=== PATIENT | male | born 1955 | race Caucasian/White ===

== ENCOUNTER 2016-07-20 08:02 | Outpatient (CLI) | payer OTHER ==
[2015-05-05 04:02] VITALS: BP 118/60
--- NOTE | 2016-07-20 14:08 | Diagnostic Imaging Report ---
PHIL BARRERA (JOCELYNE) - ER [facility] [address] [address] Report Submission Date: Jul 20, 2016 10:50:07 AM STORY EDITOR Patient Study Name: DENI ZAMORANO Date: Jul 20, 2016 8:15:26 AM STORY EDITOR Modality Type: US Gender: M Description: US CHEST LTD : 53 Institution: [facility] Physician: PHIL BARRERA (JOCELYNE) - ER Ultrasound chest wall History: Palpable lump in anterior chest wall Findings: An indeterminate 6.8 x 8 mm hypoechoic subcutaneous nodule is observed in the anterior chest wall. The lesion may be partially cystic. Impression: Nonspecific 8 mm subcutaneous chest wall nodule. Electronically signed on Jul 20, 2016 10:50:07 AM STORY EDITOR by: Apolinar FORRESTER
== END 2016-07-20 08:03 ==
LOC: RAD 08:02
PROVIDERS: ATTEND Emergency Medicine
DX: R22.2 Localized swelling, mass and lump, trunk (principal)
CPT/HCPCS: 76604

== ENCOUNTER 2016-07-25 18:48 | Emergency (ER) | payer OTHER ==
[2016-07-25] MEDS ORDERED: ONDANSETRON HCL/PF 4 MG/ 2ML VIAL ONE (19:01)
[2016-07-25] MEDS ORDERED: 0.9 % SODIUM CHLORIDE 1,000 ML IV ONE ×4 (19:01→22:33)
[2016-07-25] MEDS ORDERED: ONDANSETRON HCL/PF 4 MG/ 2ML VIAL IVP ONE (19:02)
[2016-07-25 19:11] LABS: BASOPHILS % 0.2 (0.0-1.5); EOSINOPHILS % 1.4 % (0.0-6.8); MONOCYTES # 0.6 # k/uL (0.0-0.9); MONOCYTES % 6.7 % (0.0-11.0); NEUTROPHILS # 7.3 # k/uL (1.4-7.7)
[2016-07-25] MEDS ORDERED: IPRATROPIUM/ALBUTEROL SULFATE 3 ML AMPUL.NEB NEB ONE ×2 (19:17→19:19)
--- NOTE | 2016-07-25 19:24 | ED Physician Documentation ---
General Adult - HISTORIAN Historian: patient, spouse - HPI Stated Complaint: cough, n/v Chief Complaint: General Adult Additional Information: Cough and congestion for several days. Worse the last two days with frequent productive cough, sweats, fever to 101, nausea, gagging, can't breathe well if he lies supine. Urine x 2-3 today and is darker than usual. - ROS CONST: fever, sweating CVS/RESP: cough - PAST HX Past History: other (back pain/strain) Allergies/Adverse Reactions: Allergies Allergy/AdvReac Type Severity Reaction Status Date / Time Penicillins Allergy Verified 07/25/16 19:18 Home Medications: Ambulatory Orders Medication Instructions Recorded Azithromycin [Zithromax] 250 mg PO DAILY #4 tablet 07/25/16 Benazepril HCl [Lotensin] 10 mg PO D 07/25/16 predniSONE [Deltasone] 20 mg PO QD #6 tablet 07/25/16 Benzonatate [Tessalon Perles] 200 mg PO Q8H #18 capsule 07/26/16 Phenylephrine HCl/Cod/Prometh 5 ml PO Q6H PRN #120 syrup 07/26/16 [Phenergan Vc-Codeine Syrup] - SOCIAL HX Smoking History: non-smoker - FAMILY HX Family History: No - VITAL SIGNS Vital Signs: Vital Signs Temp Pulse Resp BP Pulse Ox 100.1 F H 88 18 122/63 97 07/25/16 18:49 07/25/16 18:49 07/25/16 18:49 07/25/16 18:49 07/25/16 18:49 - REVIEWED ASSESSMENTS Nursing Assessment Reviewed: Yes Vitals Reviewed: Yes Progress - Progress Progress: Chest, 2 view History: COUGH X3 DAYS , CONGESTION, FEVER, Findings: The heart size is normal. Trace aortic atherosclerosis is present. The lungs are clear. There is no pleural effusion or pneumothorax identified. The osseous structures are normal. Impression: 1. No acute pulmonary disease. Electronically signed on Jul 25, 2016 7:57:19 PM MAINTENANCE MECHANIC MILLWRIGHT by: Johnny Scott [id number], still no urine, so erd L NS added. ED Results Lab/Radiology - Orders Orders: ED Orders Category Date Time Status Place Saline Lock/IV Now Care 07/25/16 19:02 Active CHEST 2 VIEW [CHEST P.A.&LAT 2 VIEWS] [RAD] Stat Exams 07/25/16 Ordered CBC/PLATELET/DIFF Routine Lab 07/25/16 19:06 Received CMP Routine Lab 07/25/16 19:06 Received INFLUENZA A&B Stat Lab 07/25/16 19:02 Ordered URINALYSIS Routine Lab 07/25/16 Ordered 0.9 % Sodium Chloride [Normal Saline] 1,000 ml Med 07/25/16 19:01 Discontinued IV .STK-MED 0.9 % Sodium Chloride [Normal Saline] 1,000 ml Med 07/25/16 19:03 Active IV Q1H Ipratropium/Albuterol Sulfate [Duoneb] Med 07/25/16 19:17 Discontinued 3 ml NEB .STK-MED ONE Ipratropium/Albuterol Sulfate [Duoneb] Med 07/25/16 19:19 Discontinued 3 ml NEB NOW ONE Ondansetron HCl/Pf [Zofran 4 mg/2 ml] Med 07/25/16 19:01 Discontinued 4 mg .ROUTE .STK-MED ONE Ondansetron HCl/Pf [Zofran 4 mg/2 ml] Med 07/25/16 19:02 Discontinued 4 mg IVP NOW ONE General Adult Physical Exam - PHYSICAL EXAM GENERAL APPEARANCE: moderate distress (apears tired, ill) EENT: eye inspection normal NECK: normal inspection, supple RESPIRATORY: breath sounds normal (but some decrease throughout) CVS: reg rate & rhythm, heart sounds normal, no murmur ABDOMEN: normal bowel sounds, no distension RECTAL: deferred BACK: normal inspection, no CVA tenderness, other (no midline tenderness) SKIN: warm/dry, normal color EXTREMITIES: no evidence of injury, no edema NEURO: CN's nml as tested, motor nml, sensation nml, cognition normal Discharge Clincal Impression: URI (upper respiratory infection) Qualifiers: URI type: unspecified URI Qualified Code(s): J06.9 - Acute upper respiratory infection, unspecified Prescriptions: Azithromycin [Zithromax] 250 mg PO DAILY #4 tablet Benzonatate [Tessalon Perles] 200 mg PO Q8H #18 capsule Phenylephrine HCl/Cod/Prometh [Phenergan Vc-Codeine Syrup] 5 ml PO Q6H PRN #120 syrup PRN Reason: Cough predniSONE [Deltasone] 20 mg PO QD #6 tablet Referrals: Varghese Eldridge MD [Primary Care Provider] - 2 Days Home Medications: Ambulatory Orders Azithromycin [Zithromax] 250 mg PO DAILY #4 tablet 07/25/16 Benazepril HCl [Lotensin] 10 mg PO D 07/25/16 predniSONE [Deltasone] 20 mg PO QD #6 tablet 07/25/16 Benzonatate [Tessalon Perles] 200 mg PO Q8H #18 capsule 07/26/16 Phenylephrine HCl/Cod/Prometh [Phenergan Vc-Codeine Syrup] 5 ml PO Q6H PRN #120 syrup 07/26/16 Condition: Fair Disposition: 01 HOME, SELF-CARE Decision to Admit: NO (0040) Decision Time: 00:40
[2016-07-25 19:28] LABS: eGFR (African) > 60; eGFR (Non-African) > 60
[2016-07-25] MEDS ORDERED: KETOROLAC TROMETHAMINE 30 MG/1ML VIAL IVP ONE (20:07)
[2016-07-25] MEDS ORDERED: KETOROLAC TROMETHAMINE 30 MG/1ML VIAL ONE (20:07)
[2016-07-25] MEDS ORDERED: AZITHROMYCIN 250 MG TABLET PO ONE (22:34)
[2016-07-25] MEDS ORDERED: predniSONE 20 MG TABLET PO ONE (22:34)
[2016-07-25] MEDS ORDERED: ONDANSETRON HCL 4 MG TAB.RAPDIS PO ONE (23:40)
[2016-07-25] MEDS ORDERED: ONDANSETRON HCL 4 MG TAB.RAPDIS ONE (23:53)
[2016-07-26] MEDS ORDERED: BENZONATATE 100 MG CAPSULE PO ONE ×2 (00:06→00:09)
[2016-07-26 00:42] VITALS: BP 118/47
--- NOTE | 2016-07-26 02:47 | Diagnostic Imaging Report ---
Report Submission Date: Jul 25, 2016 7:57:19 PM BODY SHOP MANAGER Patient ~ Study Name: DENI ZAMORANO ~ Date: Jul 25, 2016 7:46:43 PM BODY SHOP MANAGER ~ Modality Type: CR Gender: M ~ Description: CHEST : 53 ~ Institution: [facility] Physician: MOIRA HERNANDEZ ~ ~ ~ ~ Chest, 2 view History: COUGH X3 DAYS , CONGESTION, FEVER, Findings: The heart size is normal. Trace aortic atherosclerosis is present. The lungs are clear. There is no pleural effusion or pneumothorax identified. The osseous structures are normal. Impression: 1. No acute pulmonary disease. ~ Electronically signed on Jul 25, 2016 7:57:19 PM BODY SHOP MANAGER by: Johnny FORRESTER
[2016-07-26 05:34] LABS: APPEARANCE,URINE CLOUDY (CLEAR); COLOR,URINE AMBER (YELLOW); OCCULT BLOOD,URINE TRACE-INTACT (NEGATIVE); PH URINE 6.5 (5.0 - 8.0); UROBILINOGEN URINE >=8.0 Eu (0.2-1.0)
== END 2016-07-26 00:15 | disposition home or self-care (01) ==
LOC: ED 18:48
DX: J06.9 Acute upper respiratory infection, unspecified (principal)
CPT/HCPCS: 71020; 80053; 81002; 85025; 87400; A9270; J1885; J2405; J7030; 96361; 96372; 96374; 99282; 99283; S1016

== ENCOUNTER 2016-09-01 06:57 | Outpatient (CLI) | payer OTHER ==
[2016-09-01 07:34] LABS: eGFR (African) > 60; eGFR (Non-African) > 60
== END 2016-09-01 07:00 ==
LOC: LAB 06:57
PROVIDERS: ATTEND Family Medicine
DX: I25.10 Atherosclerotic heart disease of native coronary artery without angina pectoris (principal); R73.9 Hyperglycemia, unspecified
CPT/HCPCS: 80053; 80061; 83036

== ENCOUNTER 2017-05-04 07:19 | Outpatient (CLI) | payer OTHER ==
[2017-05-04 08:12] LABS: eGFR (African) > 60; eGFR (Non-African) > 60
== END 2017-05-04 07:20 ==
LOC: LAB 07:19
PROVIDERS: ATTEND Family Medicine
DX: I25.10 Atherosclerotic heart disease of native coronary artery without angina pectoris (principal); R73.9 Hyperglycemia, unspecified
CPT/HCPCS: 36415; 80053; 80061; 83036

== ENCOUNTER 2017-09-14 14:30 | Outpatient (CLI) | payer OTHER ==
--- NOTE | 2017-09-15 11:46 | OP Clinic Progress Note ---
REASON FOR VISIT: This 62-year-old man is seen with a left ear problem with reduced hearing. He has had a persistent problem for several months. There is some pain and reduced hearing. He has taken several courses of antibiotics, a Z-Rex and another one that he is not sure of. He has had a history of some recent hand surgery in June for Dupuytren's contracture release. The right eardrum and ear canal are fairly unremarkable. The left ear has a large amount of foul purulent debris that is stuck on the mcmahon and on the eardrum. Under microscopic visualization with the nurse taking a look also, he clearly has a perforated eardrum on that left side. Under microscopic control, I debrided and cleaned the ear using Ciprodex drops. Under microscopic view, I debrided and cleaned the ears using #3 and #5 suctions. He does have granulation tissue around there. After removing a lot of the debris, he has a second perforation slightly posterior to the fairly large inferior perforation. Again, the patient was very cooperative and allowed a significant amount of debridement and cleaning of the highly inspissated, stuck, gooey, and adhesive debris. PLAN: The patient was given Septra DS for 2 weeks and Ciloxan ophthalmic drops using 5 or 6 drops in the left ear 3 times a day with renewals. The above findings have been explained to the patient and I believe he has understanding in that regard. Aural hygiene is stressed. Note again, the patient has had a significant hearing loss with this. cc: Dr. Varghese FORRESTER
== END 2017-09-14 14:32 ==
LOC: ENT 14:30
PROVIDERS: ATTEND Otolaryngology
DX: H72.812 Multiple perforations of tympanic membrane, left ear (principal); H91.90 Unspecified hearing loss, unspecified ear
CPT/HCPCS: 69220; 99213

== ENCOUNTER 2017-09-28 14:22 | Outpatient (CLI) | payer OTHER ==
--- NOTE | 2017-09-29 10:23 | OP Clinic Progress Note ---
REASON FOR VISIT: Mr. Wills is seen in follow up of a severe left-sided otitis externa that eroded a hole in his eardrum in his left ear and he had poor hearing. The hearing has not come back but the pain and discomfort has resolved and the drainage has resolved. Under the microscope, I viewed the ear. The perforation still remains in the posterior superior quadrant. There is some early evidence of an attempt of the eardrum to heal the perforation with a small shelf of eardrum growing in the anterior aspect of the perforation. Overall, the ear canal is fairly clear. He is using Ciloxan ear drops. These have not caused discomfort. He does believe he is a doing a good job of getting these all the way to the bottom of the ear canal. I reviewed those issues with him. I debrided and cleaned a small amount of hard scaly debris off the ear canal and a small amount off of the eardrum. PLAN: Patient will continue using the Ciloxan ear drops once or twice a day in that left ear. I will see him back in about 3 weeks. Patient understands he is welcome to get additional opinions if he chooses. cc: Dr. Varghese FORRESTER
== END 2017-09-28 14:23 ==
LOC: ENT 14:22
PROVIDERS: ATTEND Otolaryngology
DX: H60.92 Unspecified otitis externa, left ear (principal); H72.92 Unspecified perforation of tympanic membrane, left ear
CPT/HCPCS: 69220; 99213

== ENCOUNTER 2017-10-12 07:50 | Emergency (ER) | payer OTHER ==
[2017-10-12 08:07] VITALS: BP 136/74
[2017-10-12] MEDS: Lidocaine 1% 5ml(IM or SUTURE)(PAIN CLINIC) IJ ONE (08:14)
[2017-10-12] MEDS: SODIUM BICARBONATE 2.4 MEQ VIAL INJ ONE (08:14)
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
[2017-10-12] MEDS: DIPH,PERTUSS(ACELL),TET VAC/PF 0.5 ML DISP.SYRIN IM ONE (08:32)
--- NOTE | 2017-10-12 18:15 | Diagnostic Imaging Report ---
PHIL SAUCEDO (BATHROOM TILING PROFESSIONAL) - ER [facility] [address] [address] Report Submission Date: October 12, 2017 8:46:51 AM CDT Patient Study Name: DENI ZAMORANO Date: October 12, 2017 8:25:21 AM CDT Modality Type: DX Gender: M Description: UPPER EXTREMITY : 53 Institution: [facility] Physician: PHIL SAUCEDO (BATHROOM TILING PROFESSIONAL) - ER Examination: Plain film right forearm History: RT FOREARM, PAIN/ LACERATION TO MID FOREARM AFTER DOG BITE TODAY (Hx) Comparison exams: None available Findings: 2 views of the right radius and ulna demonstrates normal cortical margins. No evidence for fracture line. No gross soft tissue abnormality. Impression: No acute osseous abnormality. No soft tissue foreign body. Electronically signed on October 12, 2017 8:46:51 AM CDT by: Franko FORRESTER
== END 2017-10-12 08:40 | disposition home or self-care (01) ==
LOC: ED 07:50
DX: S51.811A Laceration without foreign body of right forearm, initial encounter (principal); S41.151A Open bite of right upper arm, initial encounter; W54.0XXA Bitten by dog, initial encounter
CPT/HCPCS: 12001; 73090; 90715; 96372; J7030

== ENCOUNTER 2017-10-19 13:02 | Outpatient (CLI) | payer OTHER ==
--- NOTE | 2017-10-20 09:10 | OP Clinic Progress Note ---
REASON FOR VISIT: This 62-year-old man is seen in follow up of his severe left-sided otitis externa that caused a perforation in the left ear in the posterior superior quadrant. A significant amount of micro-debridement was done at his last visit. The ear certainly feels a whole lot better and slight improvement clinically of the hearing. Under a microscopic evaluation, the ear is almost closed. There is a thin line between the tympanum and the posterior superior aspect of the ear canal. This is just a 0.5 mm to 1 mm gap in 2 very small places. I debrided a small amount of exudate from the ear canal. Most of the ear canal infection has resolved. PLAN: I recommended to continue using the Ciloxan drops as noted before and he has a p.r.n. renewal pattern on that. Aural hygiene is stressed. I will see him back in about 3 weeks. cc: Dr. Varghese FORRESTER
== END 2017-10-19 13:03 ==
LOC: ENT 13:02
PROVIDERS: ATTEND Otolaryngology
DX: H60.92 Unspecified otitis externa, left ear (principal); H72.92 Unspecified perforation of tympanic membrane, left ear
CPT/HCPCS: 69210; 99213

== ENCOUNTER 2017-11-09 14:20 | Outpatient (CLI) | payer OTHER ==
--- NOTE | 2017-11-10 08:22 | OP Clinic Progress Note ---
REASON FOR VISIT: Mr. Wills is seen in follow up of a left-sided eardrum perforation and otitis externa. Clinically, it was the otitis externa that created the perforation of the left eardrum. He has used Ciloxan drops in the left ear once or twice a day. Clinically, the patient's hearing has improved. There is no moisture really of the left ear canal, nor of the middle ear, and clinically, this is a perforation that was created by the severe otitis externa that he had when initially seen. Again, the perforation remains. It is in the posterior superior quadrant and it is a marginal perforation. I debrided and cleaned the ear under the Zeiss microscope. I do not see evidence of cholesteatoma. Nevertheless, there is not a lot of progression as far as the size of the perforation. I debrided and cleaned a small amount of yellowish debris of the ear canal and around the perforation. PLAN: I believe there is still time to wait to see if the infection stays away. Perhaps there will be some chance for the eardrum to self-heal. Otherwise, it is healthier overall for the ear for a number of reasons to have the hole in the eardrum closed, potentially by a tympanoplasty. I went over some of these issues with the patient again today. cc: Dr. Varghsee FORRESTER
== END 2017-11-09 14:23 ==
LOC: ENT 14:20
PROVIDERS: ATTEND Otolaryngology
DX: H60.92 Unspecified otitis externa, left ear (principal); H72.92 Unspecified perforation of tympanic membrane, left ear
CPT/HCPCS: 69220; 99213

== ENCOUNTER 2018-06-05 09:34 | Outpatient (CLI) | payer OTHER ==
[2018-06-05 10:05] LABS: eGFR (Non-African) > 60
== END 2018-06-05 09:35 ==
LOC: LAB 09:34
PROVIDERS: ATTEND Nurse Practitioner Family
DX: R35.0 Frequency of micturition (principal); R73.9 Hyperglycemia, unspecified; E78.00 Pure hypercholesterolemia, unspecified; I51.9 Heart disease, unspecified; R97.20 Elevated prostate specific antigen [PSA]; Z12.5 Encounter for screening for malignant neoplasm of prostate
CPT/HCPCS: 80053; 80061; 83036; G0103